=== PATIENT | female | born 1995 | race Caucasian/White ===

== ENCOUNTER 2016-07-29 18:42 | Emergency (ER) | payer OTHER ==
[~2016-07-29] VITALS: Ht 175.3 cm; Wt 77.1 kg
[2016-07-29 19:16] VITALS: BP 144/86
--- NOTE | 2016-07-29 20:36 | Emergency Room Report ---
History of Present Illness General Chief Complaint: Sore Throat Source: Patient Present Illness HPI 21-year-old female presents to emergency Department complaining of sore throat 8 /10 in severity times one day. Patient reports that last week she had similar symptoms and was seen at the hospital and after having blood work done she was d /c and was diagnosed with strep throat and prescribe antibiotics for which she did not take. Patient also reports intermittent chills, generalized body aches. Patient reports throat pain is exacerbated upon swallowing. She denies neck pain or stiffness, she denies headache or rashes. Patient has had intermittent fevers and chills. Denies CP, Palpitations, LOC, AMS, dizziness, Changes in Vision, Sensation, paresthesias, or a sudden severe headache. Denies ill contacts or recent travel. Denies cough. Allergies: Coded Allergies: CEPHALEXIN (Verified Allergy, Unknown, 07/29/16) PENICILLIN G (Verified Allergy, Unknown, 07/29/16) SULFA (SULFONAMIDE ANTIBIOTICS) (Verified Allergy, Unknown, 07/29/16) Patient History Past Medical History: see triage record Past Surgical History: none Pertinent Family History: none Last Menstrual Period: 07/12/16 Now: No Reviewed Nursing Documentation: PMH: Agreed, PSxH: Agreed Nursing Documentation-PMH Past Medical History: No Stated History Review of Systems All Other Systems: negative except mentioned in HPI Physical Exam Vital Signs Date Time Temp Pulse Resp B/P Pulse Ox O2 Delivery O2 Flow Rate FiO2 07/29/16 19:07 98.2 130 16 144/86 100 Room Air Sp02 EP Interpretation: reviewed, normal General Appearance: no apparent distress, alert, GCS 15, non-toxic Head: normocephalic, atraumatic Eyes: bilateral eye PERRL, bilateral eye normal inspection ENT: hearing grossly normal, normal pharynx, no angioedema, normal voice, pharyngeal erythema, other - Petechiae noted on the soft palate, no significant pharyngeal erythema Neck: full range of motion, no meningismus, no bony tend, supple/symm/no masses Respiratory: chest non-tender, lungs clear, normal breath sounds, speaking full sentences Cardiovascular #1: regular rate, rhythm, no edema Gastrointestinal: soft Musculoskeletal: back normal, gait/station normal, normal range of motion, non- tender, no calf tenderness Neurologic: alert, oriented x3, responsive, motor strength/tone normal, sensory intact, speech normal Psychiatric: judgement/insight normal, memory normal, no suicidal/homicidal ideation, depressed affect, anxious, other - anxious in appearance and during HPI pt. becomes tearful intermittently when talking about how she has been under emotional stress with feeling ill. Skin: normal color, no rash, warm/dry, well hydrated Lymphatic: no adenopathy Medical Decision Making PA Attestation Dr. Yang is my supervising Physician whom patient management has been discussed with. Diagnostic Impression: Primary Impression: Pharyngitis Qualified Codes: J02.9 - Acute pharyngitis, unspecified ER Course Pt. presents to the ED c/o : painful sore throat, with intermittent fevers/ chills and recent dx of strep and did not take her prescribed abx. Ddx considered but are not limited to: pharyngitis, strep, [employer] COMPLIANCE EXAMINER, ludwigs angina, URI , psychiatric disorder, anxiety, non-compliance Vital signs: are WNL, pt. is afebrile, Pt is mildly tachycardic, anxious in appearance and during HPI pt. becomes tearful intermittently when talking about how she has been under emotional stress with feeling ill. H&PE are most consistent with: pharyngitis presumed strep due to presence of petechiae on the soft palate. , possible anxiety/psych/behavioral. Pt. requests several times to be re-evaluated, and have her vitals re-checked. ORDERS: None required at this time as the diagnosis is clinical , Pt states she has had blood work done last week when dx'd with strep. I do not feel laboratory work is warranted at this ED visit. ED INTERVENTIONS: none required at this time. - D/w pt the importance of following her treatment plan, if she is truly concerned about her throat and being ill. d/w pt. to follow up with PCP, or return with worsening of symptoms. DISCHARGE: At this time pt. is stable for d/c to home. Will provide printed patient care instructions, and any necessary prescriptions. Care plan and follow up instructions have been discussed with the patient prior to discharge. Last Vital Signs Date Time Temp Pulse Resp B/P Pulse Ox O2 Delivery O2 Flow Rate FiO2 07/29/16 19:16 98.2 70 16 144/86 100 Room Air Disposition: HOME, SELF-CARE Condition: Stable Scripts Acetaminophen* (TYLENOL EXTRA STRENGTH*) 500 Mg Tablet 500 MG ORAL Q8H Y for Prn Headache/Temp > 101, #30 TAB 0 Refills Prov: Nilam Alegre 07/29/16 Azithromycin* (ZITHROMAX*) 250 Mg Tablet 250 MG ORAL DAILY for 5 Days, #6 TAB Prov: Nilam Alegre 07/29/16 Patient Instructions: Pharyngitis, Strep Throat Additional Instructions: Take medications as directed. Follow up with PCP in 3-5 days Return sooner to ED if new symptoms occur, or current symptoms become worse. Nilam Alegre Jul 29, 2016 20:36
[2016-07-29 20:47] VITALS: BP 133/75
[2016-07-29] MEDS ORDERED: TYLENOL EXTRA500 MG ORAL (21:30)
[2016-07-29] MEDS ORDERED: AZITHROMYCIN250 MG ORAL (21:30)
[2016-07-29 22:02] VITALS: BP 129/75
[2016-07-29 22:25] VITALS: BP 130/76
== END 2016-07-29 22:24 | disposition home or self-care (01) ==
LOC: EMR 19:50
DX: J02.9 Acute pharyngitis, unspecified (principal)
CPT/HCPCS: 99282